=== PATIENT | female | born 1955 | race African-American/Black ===

== ENCOUNTER 2018-03-22 22:53 | Emergency (ER) | payer OTHER ==
[2018-03-23] MEDS: KETOROLAC 30 MG INJ IM (00:21)
== END 2018-03-23 02:03 | disposition home or self-care (01) ==
LOC: FTE 22:53
DX: M79.672 Pain in left foot (principal); M25.572 Pain in left ankle and joints of left foot; M10.9 Gout, unspecified
CPT/HCPCS: 73610; 73630-LT; 96372; 99284-25